=== PATIENT | male | born 1990 | race Caucasian/White ===

== ENCOUNTER 2017-03-23 00:36 | Emergency (ER) | payer SELFPAY ==
[~2017-03-23] VITALS: Ht 188 cm; Wt 74.8 kg
--- NOTE | 2017-03-23 00:36 | NUR ---
to bed 2 [facility] paramedics c/o heroin overdose, narcan 2mg spray given by [facility] water vessel captain. pt responsive to painful stimuli. no acute distress noted, resp even and unlabored. place pt on cardiac monitoring, continuous pox, o2@2L/NC. er md at bedside to eval pt. [employer] officers at bedside.
[2017-03-23] MEDS ORDERED: TDAP [DIPH/PERTUSSIS/TET] 0.5 ML VIAL IM ONE ×2 (01:18→02:00)
--- NOTE | 2017-03-23 02:14 | NUR ---
pt asleep, no acute distress noted, resp even and unlabored. call light within reach. will continue to monitor pt closely.
--- NOTE | 2017-03-23 04:16 | NUR ---
pt aaox4 no acute distress noted, resp even and unlabored. call light within reach.
--- NOTE | 2017-03-23 05:44 | NUR ---
PT GAVE ME A TELEPHONE NUMBER FOR HIS MOTHER. [phone]. PT'S MOTHER'S NAME IS MURALI.
--- NOTE | 2017-03-23 05:45 | NUR ---
CALLED PT'S MOTHER RE:PICKING PT UP. PT IS AA&O X3. PT WAS ASSISTED INTO HIS CLOTHES. IV removed. Catheter intact and site benign. Pressure and 4x4 applied to site. No bleeding noted.
--- NOTE | 2017-03-23 05:45 | NUR ---
PT'S MOTHER IS COMING TO AUDIENCE DEVELOPMENT MANAGER PT.
--- NOTE | 2017-03-23 06:48 | NUR ---
PT'S MOTHER, MURALI, AND HIS FATHER ARRIVED. Patient discharged to home in stable condition. Written and verbal after care instructions given. Patient verbalizes understanding of instruction. PT AMBULATED OUT WITH A STEADY GAIT. PT'S MOTHER REC'D INFORMTAION ON [facility]. VSS.
[2017-03-23 07:02] VITALS: BP 122/95
== END 2017-03-23 07:03 | disposition home or self-care (01) ==
LOC: ER 00:40 → EDBD 00:40 → ER 07:03
DX: T40.1X1A Poisoning by heroin, accidental (unintentional), initial encounter (principal); F11.10 Opioid abuse, uncomplicated; L02.414 Cutaneous abscess of left upper limb; R79.89 Other specified abnormal findings of blood chemistry; Y92.89 Other specified places as the place of occurrence of the external cause
CPT/HCPCS: 82962-TC; 90715; A4606; A6407; Z7610

== ENCOUNTER 2022-12-23 11:27 | Emergency (ER) | payer SELFPAY ==
[~2022-12-23] VITALS: Ht 188 cm; Wt 81.6 kg
--- NOTE | 2022-12-23 11:40 | NUR ---
JOESPH ALEX "Homeless was found on a lawn- bystander called. Smoked Marijuana and Fentanyl early am"
--- NOTE | 2022-12-23 12:00 | NUR ---
SleepingEasily awakened. Respiration even and unlabored NO obvious distress
--- NOTE | 2022-12-23 14:46 | NUR ---
IV removed. Catheter intact and site benign. Pressure and 4x4 applied to site. No bleeding noted.
--- NOTE | 2022-12-23 14:46 | NUR ---
Patient discharged to home in stable condition. Written and verbal after care instructions given. Patient verbalizes understanding of instruction.
[2022-12-23 14:47] VITALS: BP 101/71
== END 2022-12-23 14:47 | disposition home or self-care (01) ==
LOC: ER 11:41
DX: F19.10 Other psychoactive substance abuse, uncomplicated (principal); F12.10 Cannabis abuse, uncomplicated